=== PATIENT | male | born 1985 | race Two or more races ===

== ENCOUNTER 2019-05-23 20:50 | Emergency (ER) | payer BC ==
[2019-05-23] MEDS ORDERED: ASPIRIN 81 MG TABLET, CHEWABLE PO ONE (21:06)
--- NOTE | 2019-05-23 21:06 | ER Document Report ---
ED Medical Screen (RME) - General Chief Complaint: Chest Pain Stated Complaint: CHEST PAIN,DIFFICULTY BREATHING Time Seen by Provider: 05/23/19 21:04 Primary Care Provider: FERN POPE [Primary Care Provider] - Follow up as needed Notes: HPI: 34-year-old male presenting with chest pressure right chest that radiates into the right back that began this afternoon. Reports increased pressure with deep breathing. No fever no recent illness. No cough. Has had slight nausea since 8 PM but no abdominal pain. No prior history of similar discomfort. Patient states he did run 3-1/2 miles this morning with no difficulty. I have greeted and performed a rapid initial assessment of this patient. A comprehensive ED assessment and evaluation of the patient, analysis of test results and completion of the medical decision making process will be conducted by additional ED providers PHYSICAL EXAMINATION: Alert and oriented x3, moves all extremities equally. Lung sounds are clear to auscultation, regular rate and rhythm. EKG normal sinus rhythm without ectopy. No abdominal pain on palpation. No chest wall pain on palpation - Related Data Allergies/Adverse Reactions: No Known Allergies Allergy (Verified 01/19/12 11:58) Past Medical History - Past Medical History Cardiac Medical History: Denies: Hx Coronary Artery Disease, Hx Hypertension Pulmonary Medical History: Denies: Hx Asthma Endocrine Medical History: Denies: Hx Diabetes Mellitus Type 1, Hx Diabetes Mellitus Type 2 - Immunizations Hx Diphtheria, Pertussis, Tetanus Vaccination: Yes Physical Exam - Vital signs Vitals: Temp Pulse Resp BP Pulse Ox 98.3 F 74 16 179/110 H 93 05/23/19 20:59 05/23/19 20:59 05/23/19 20:59 05/23/19 20:59 05/23/19 20:59 Course - Vital Signs Vital signs: Temp Pulse Resp BP Pulse Ox 98.3 F 74 16 179/110 H 93 05/23/19 20:59 05/23/19 20:59 05/23/19 20:59 05/23/19 20:59 05/23/19 20:59 Doctor's Discharge - Discharge Referrals: FERN POPE [Primary Care Provider] - Follow up as needed
[2019-05-23 21:26] LABS: ABSOLUTE EOSINOPHILS # (AUTO) 0.1 10^3/uL (0.0-0.6); ABSOLUTE LYMPHOCYTES (AUTO) 1.7 10^3/uL (0.5-4.7); ABSOLUTE MONOCYTES (AUTO) 0.4 10^3/uL (0.1-1.4); ABSOLUTE NEUT (AUTO) 3.3 10^3/uL (1.7-8.2); BASOPHILS % (AUTO) 0.4 % (0-2); EOSINOPHILS % (AUTO) 2.1 % (0-6); HEMATOCRIT 39.6 % (37.9-51.0); HEMOGLOBIN 13.9 g/dL (13.5-17.0); LYMPHOCYTES % (AUTO) 30.2 % (13-45); MEAN CORPUSCULAR HEMOGLOBIN 29.4 pg (27.0-33.4); MEAN CORPUSCULAR HGB CONC 35.1 g/dL (32.0-36.0); MEAN CORPUSCULAR VOLUME 84 fl (80-97); MONOCYTES % (AUTO) 7.8 % (3-13); PLATELET COUNT 173 10^3/uL (150-450); RED BLOOD COUNT 4.71 10^6/uL (4.35-5.55); RED CELL DISTRIBUTION WIDTH 12.8 % (11.5-14.0); SEGMENTED NEUTROPHILS % (AUTO) 59.5 % (42-78); TOTAL CELLS COUNTED % (AUTO) 100 %; WHITE BLOOD COUNT 5.5 10^3/uL (4.0-10.5)
[2019-05-23 21:32] LABS: INTERNATIONAL RATION (INR) 1.11; PROTHROMBIN TIME 14.3 SEC (11.4-15.4)
[2019-05-23 21:43] LABS: ALBUMIN 4.4 g/dL (3.5-5.0); ALKALINE PHOSPHATASE 88 U/L (38-126); ANION GAP 13 (5-19); ASPARTATE AMINO TRANSFERASE 27 U/L (17-59); BILIRUBIN,DIRECT 0.3 mg/dL (0.0-0.4); BILIRUBIN,TOTAL 0.4 mg/dL (0.2-1.3); BLOOD UREA NITROGEN 17 mg/dL (7-20); CALCIUM 9.5 mg/dL (8.4-10.2); CARBON DIOXIDE 25 mmol/L (22-30); CHLORIDE 102 mmol/L (98-107); GLUCOSE 169 mg/dL (75-110); POTASSIUM 3.6 mmol/L (3.6-5.0); TOTAL PROTEIN 7.4 g/dL (6.3-8.2)
--- NOTE | 2019-05-23 21:53 | RADIOLOGY REPORT (SQ) ---
EXAM DESCRIPTION: XR CHEST 2 VIEWS COMPLETED DATE/TME: 05/23/2019 21:04 CLINICAL HISTORY: 34 years, Male, chest pain COMPARISON: Prior study from 01/19/2012 NUMBER OF VIEWS: 2 TECHNIQUE: Frontal and lateral radiographs were obtained LIMITATIONS: None. FINDINGS: Cardiac and mediastinal contours are normal in appearance. Lungs are clear. No pleural effusion or pneumothorax. IMPRESSION: No acute disease. copyright 2010 [employer]- All Rights Reserved
--- NOTE | 2019-05-23 23:16 | ER Document Report ---
ED General - General Chief Complaint: Chest Pressure Stated Complaint: CHEST PAIN,DIFFICULTY BREATHING Time Seen by Provider: 05/23/19 21:04 Primary Care Provider: FERN POPE [NO LOCAL MD] - Follow up as needed Mode of Arrival: Ambulatory Information source: Patient Notes: 34-year-old man presents to the emergency department with a complaint of burning discomfort in the chest radiating into his back. He denies a prior history of similar episodes. And has no risk factors, he denies smoking, hypertension, family history of CAD. - Related Data Allergies/Adverse Reactions: No Known Allergies Allergy (Verified 01/19/12 11:58) Home Medications: OXYBUTINE Past Medical History - Social History Smoking Status: Never Smoker Family History: Reviewed & Not Pertinent Patient has suicidal ideation: No Patient has homicidal ideation: No - Past Medical History Cardiac Medical History: Denies: Hx Coronary Artery Disease, Hx Hypertension Pulmonary Medical History: Denies: Hx Asthma Endocrine Medical History: Denies: Hx Diabetes Mellitus Type 1, Hx Diabetes Mellitus Type 2 - Immunizations Hx Diphtheria, Pertussis, Tetanus Vaccination: Yes Review of Systems - Review of Systems Notes: Constitutional: Negative for fever. HENT: Negative for sore throat. Eyes: Negative for visual changes. Cardiovascular: + Chest burning Respiratory: Negative for shortness of breath. Gastrointestinal: Negative for abdominal pain, vomiting or diarrhea. Genitourinary: Negative for dysuria. Musculoskeletal: Negative for back pain. Skin: Negative for rash. Neurological: Negative for headaches, weakness or numbness. 10 point ROS negative except as marked above and in HPI. Physical Exam - Vital signs Vitals: Temp Pulse Resp BP Pulse Ox 98.3 F 74 16 179/110 H 93 05/23/19 20:59 05/23/19 20:59 05/23/19 20:59 05/23/19 20:59 05/23/19 20:59 - Notes Notes: PHYSICAL EXAMINATION: Physical Exam: General: Well-nourished well-developed 34-year-old man in no acute distress HEENT: NC/AT, pupils equal round and reactive to light, MM moist,nares clear, oropharynx clear, airway patent Neck: supple, no adenopathy, no masses. Good range of motion Lungs: clear, no wheezing, no rales no rhonchi CVS: Regular rate and rhythm no murmur gallop or rub Abdomen: Soft, active, nontender, no masses, no hepatosplenomegaly Ext: No edema, clubbing or cyanosis. Neuro: Alert and responsive, moving all 4 extremities on command, cranial nerves intact, no focal findings Skin: Intact no open lesions, no rash PSYCH: Normal mood, normal affect. Course - Re-evaluation Re-evalutation: 05/23/19 23:14 Patient symptoms were resolved by the time of this exam, he states that it was a burning discomfort that radiated through to his back, symptoms lasted for a brief period, his insisted that he come to be checked. The patient notes that he ran 3.5 miles during his lunch break today at work. And had no symptoms at that time. 05/23/19 23:16 HEART Score: HEART score for chest pain patients Score History Slightly suspicious 0 ECG Normal 0 Age = <45 year 0 Risk factors = No risk factors known 0 Troponin =normal limit 0 Total 0 If HEART score is = 3 AND both tronponin measurments are normal, the 30 day risk of a major adverse cardiac event (all-cause mortality, myocardia infarction or need for coronary revscularization) is < 1% (Sensitivity 100%, NPV 100%). Chest pain in a patient without evidence of cardiac or other serious etiology on workup today. I discussed with patient that, based on their age, risk factors and emergency department testing today, the likelihood that their symptoms are related to a heart attack is very low (estimated risk of heart attack or over the next 30 days of less than 1%). The patient demonstrates decision making capacity and has verbalized an understanding of these risks to me. Based on this, the patient has chosen to follow-up as an outpatient. Usual chest pain return precautions reviewed. The patient states understanding and agreement with this plan. - Vital Signs Vital signs: Temp Pulse Resp BP Pulse Ox 97.4 F 74 19 152/93 H 97 05/23/19 23:30 05/23/19 20:59 05/23/19 23:01 05/23/19 23:01 05/23/19 23:01 - Laboratory Result Diagrams: 05/23/19 21:14 05/23/19 21:14 Laboratory results interpreted by me: 05/23/19 21:14 Glucose 169 H 05/24/19 00:12 I have reviewed laboratory data and used this information for the treatment decisions regarding the patient. - Diagnostic Test Radiology reviewed: Image reviewed, Reports reviewed - EKG Interpretation by Me EKG shows normal: Sinus rhythm Rate: Normal Rhythm: NSR - Rate 80 Discharge - Discharge Clinical Impression: Non-cardiac chest pain, Elevated blood pressure reading Condition: Good Disposition: HOME, SELF-CARE Instructions: Chest Pain of Unclear Cause ([facility]) Additional Instructions: You were diagnosed with a noncardiac episode of chest discomfort, symptoms may be result of esophageal spasm or muscle spasm, given the complaint of burning GI related etiology is likely. You may use [id number] antiacid and Tylenol for the pain. If your symptoms are continuing or worsening you may return to the emergency department for further evaluation and treatment. Referrals: LOCALMD,NO [NO LOCAL MD] - Follow up as needed
[2019-05-23 23:29] VITALS: BP 152/93
--- NOTE | 2019-05-24 13:55 | EKG REPORT ---
SEVERITY:- NORMAL ECG - SINUS RHYTHM : Confirmed by: Tracee Matson MD 24-May-2019 13:54:29
== END 2019-05-23 23:33 | disposition home or self-care (01) ==
LOC: ER 20:50
DX: R07.89 Other chest pain (principal); R06.00 Dyspnea, unspecified; R03.0 Elevated blood-pressure reading, without diagnosis of hypertension
CPT/HCPCS: 36415; 71046; 80053; 84484; 85025; 85610; 93005; 93010; 99285

== ENCOUNTER 2019-05-25 05:51 | Emergency (ER) | payer BC ==
[2019-05-25] MEDS ORDERED: PANTOPRAZOLE SODIUM 40 MG TABLET.DR PO ONE (07:02)
--- NOTE | 2019-05-25 07:26 | RADIOLOGY REPORT (SQ) ---
Ultrasound of the right upper quadrant of the abdomen: 05/25/2019 6:24 AM CDT Technique: Multiple grayscale color Doppler images of the right upper quadrant of the abdomen were obtained. Comparison: None available History: 34-year old patient with epigastric pain. Findings: The visualized portions of the hepatic parenchyma appears diffusely echogenic. There is no evidence to suggest intra or extrahepatic ductal dilatation. There is normal directional flow seen within the main portal vein. There is no evidence of pericholecystic fluid, gallbladder wall thickening, or cholelithiasis. The common duct measures 2-3 mm. The right kidney measures up to 11.3 cm in length. The right kidney demonstrates normal cortical echogenicity with no evidence to suggest hydronephrosis. The visualized portions of the IVC, abdominal aorta, and pancreatic head appear normal. No free intraperitoneal fluid is seen. Impression: 1. No cholelithiasis is seen. The common duct is within normal limits of size. 2. Hepatic steatosis
[2019-05-25 07:52] VITALS: BP 138/86
--- NOTE | 2019-05-26 16:49 | ER Document Report ---
Entered by AMPARO CASAS SCRIBE 05/25/19 0628 Acting as scribe for:KEVAN BILL MD ED General - General Chief Complaint: Abdominal Pain Stated Complaint: ABDOMINAL PAIN Time Seen by Provider: 05/25/19 06:05 Primary Care Provider: JOHNATHON MARINO MD [Primary Care Provider] - Follow up as needed Information source: Patient Notes: This 34 year old male patient presents to the emergency department today with complaints of a "burning sensation" in his upper abdomen. Patient states he was in the emergency department x2 days ago for the same problem. Patient states this usually occurs after he eats, is exacerbated by laying supine, and most recently occurred this morning at 4:30 am. Patient states he took Tums as instructed from his last visit. Patient states he also took Tylenol yesterday and this morning because he felt like he had chills. Patient states he has a decreased appetite and feels nauseous after eating. Patient denies vomiting, problems with swallowing, or problems with bowel movement. - Related Data Allergies/Adverse Reactions: No Known Allergies Allergy (Verified 01/19/12 11:58) Past Medical History - General Information source: Patient - Social History Smoking Status: Never Smoker Cigarette use (# per day): No Chew tobacco use (# tins/day): No Frequency of alcohol use: None Drug Abuse: None Family History: Reviewed & Not Pertinent, Hypertension Patient has suicidal ideation: No Patient has homicidal ideation: No - Immunizations Hx Diphtheria, Pertussis, Tetanus Vaccination: Yes Review of Systems - Review of Systems Constitutional: See HPI, Chills EENT: See HPI. denies: Difficulty swallowing Cardiovascular: No symptoms reported Respiratory: No symptoms reported Gastrointestinal: See HPI, Abdominal pain, Nausea. denies: Vomiting Genitourinary: No symptoms reported Male Genitourinary: No symptoms reported Musculoskeletal: No symptoms reported Skin: No symptoms reported Hematologic/Lymphatic: No symptoms reported Neurological/Psychological: No symptoms reported -: Yes All other systems reviewed and negative Physical Exam - Vital signs Vitals: Temp Pulse Resp BP Pulse Ox 97.5 F 78 17 156/95 H 97 05/25/19 05:56 05/25/19 05:56 05/25/19 05:56 05/25/19 05:56 05/25/19 05:56 - General General appearance: Appears well, Alert - HEENT Head: Normocephalic, Atraumatic Eyes: Normal Pupils: PERRL Pharynx: Normal - Respiratory Respiratory status: No respiratory distress Chest status: Nontender Breath sounds: Normal Chest palpation: Normal - Cardiovascular Rhythm: Regular Heart sounds: Normal auscultation Murmur: No - Abdominal Inspection: Normal Distension: No distension Bowel sounds: Normal Tenderness: Nontender Organomegaly: No organomegaly - Extremities General upper extremity: Normal inspection. No: Edema General lower extremity: Normal inspection. No: Edema - Neurological Neuro grossly intact: Yes Cognition: Normal Orientation: AAOx4 - Psychological Associated symptoms: Normal affect, Normal mood - Skin Skin Temperature: Warm Skin Moisture: Dry Skin Color: Normal Course - Re-evaluation Re-evalutation: 05/25/19 07:33 Patient resting comfortably. Awaken patient and reported to him preliminary findings of his ultrasound right upper quadrant disclosed no acute gallbladder disease or biliary tract disease. Official reading still pending at this time. Explained the patient that the plan of care will be to put him on a medication for acid reflux and nausea. - Vital Signs Vital signs: Temp Pulse Resp BP Pulse Ox 97.8 F 65 16 138/86 H 99 05/25/19 07:51 05/25/19 07:51 05/25/19 07:51 05/25/19 07:51 05/25/19 07:51 - Laboratory Laboratory results interpreted by me: Reviewed laboratories EKG chest x-ray that was done on patient 2 days ago while in the emergency department with this complaint of chest pain. Patient's labs EKG chest x-ray all were within normal limits. Due to recent labs there was no repeat laboratories done today. - Diagnostic Test Radiology reviewed: Image reviewed, Reports reviewed Radiology results interpreted by me: 05/25/19 07:39 Ultrasound of abdomen right upper quadrant preliminary notes by sleep technician shows no acute process. Official read still pending from radiologist. Discharge - Discharge Clinical Impression: GERD (gastroesophageal reflux disease) Condition: Stable Disposition: HOME, SELF-CARE Additional Instructions: Reflux Disease (GERD) Gastro-Esophageal Reflux Disease (GERD) is caused by stomach acid refluxing back up into the esophagus. The valve at the end of the esophagus may be weak. This is common in persons with a hiatal hernia. GERD symptoms can include indigestion, chest pain, heartburn, or food "sticking." Certain foods, alcohol, and aspirin can make GERD worse. Treatment depends on the severity. Usually, antacids or acid-suppressing medicines are used. When the esophagus is acutely inflamed, the physician will often prescribe membrane-protective drugs such as Carafate. Some patients benefit from medication such as Reglan that tightens the valve at the top of the stomach. Avoid those foods that bring on your symptoms. For many people, these foods are coffee, chocolate, onions, garlic, and carbonated drinks. Don't use alcohol, aspirin, caffeine, or tobacco. Don't eat late at night -- within 4 hours of bedtime. Don't over-eat. If necessary, elevate the head of your bed about 4 inches so that stomach acid will not roll up into your esophagus. Call the doctor if you develop severe chest pain, inability to swallow fluids, fever, or worsening symptoms. Prescriptions: Ondansetron [Zofran Odt 4 mg Tablet] 1 - 2 tab PO Q4HP PRN #10 tab.rapdis PRN Reason: Omeprazole 40 mg PO DAILY #30 capsule.dr Referrals: JOHNATHON MARINO MD [Primary Care Provider] - Follow up as needed I personally performed the services described in the documentation, reviewed and edited the documentation which was dictated to the scribe in my presence, and it accurately records my words and actions.
== END 2019-05-25 07:52 | disposition home or self-care (01) ==
LOC: ER 05:51
DX: K21.9 Gastro-esophageal reflux disease without esophagitis (principal); R68.83 Chills (without fever); R11.0 Nausea
CPT/HCPCS: 99284; 76705; J3490

== ENCOUNTER 2019-05-26 20:29 | Emergency (ER) | payer BC ==
--- NOTE | 2019-05-26 21:32 | ER Document Report ---
ED General - General Chief Complaint: Epigastric Pain Stated Complaint: POSSIBLE VIRUS EXPOSURE Time Seen by Provider: 05/26/19 21:13 Primary Care Provider: TEJ GRACIA FNP [Primary Care Provider] - Follow up as needed Mode of Arrival: Ambulatory Information source: Patient TRAVEL OUTSIDE OF THE [place] IN LAST 30 DAYS: No - HPI Onset: Other - Since last Sunday Onset/Duration: Gradual Quality of pain: Burning Severity: Moderate Pain Level: 3 Associated symptoms: Other - epigastric abdominal pain after eating Exacerbated by: Denies Relieved by: Denies Similar symptoms previously: No Recently seen / treated by doctor: Yes - patient has been seen in this ER 2 times recently for the same issues Notes: 34 year old male with no known PMH here for epigastric abdominal pain which comes on after eating and after urinating. The patient has had the burning pain since last Sunday. The patient also gets chills with the pains. The patient denies fevers, nausea, vomiting, diarhrea, known sick contacts, sweats. The patient has only had a bland diet since then but basically any food he seems to eat seem to make the pain worse. The patient has had blood work in this ER including a CBC and CMP which have been unremarkable. The patient has also had an abdominal ultrasound which has been unremarkable. - Related Data Allergies/Adverse Reactions: No Known Allergies Allergy (Verified 01/19/12 11:58) Home Medications: omeprezole. Tylenol Past Medical History - General Information source: Patient - Social History Smoking Status: Never Smoker Frequency of alcohol use: None Drug Abuse: None Family History: Reviewed & Not Pertinent, Hypertension Patient has suicidal ideation: No Patient has homicidal ideation: No - Past Medical History Cardiac Medical History: Denies: Hx Coronary Artery Disease, Hx Hypertension Pulmonary Medical History: Denies: Hx Asthma Endocrine Medical History: Denies: Hx Diabetes Mellitus Type 1, Hx Diabetes Mellitus Type 2 - Immunizations Hx Diphtheria, Pertussis, Tetanus Vaccination: Yes Review of Systems - Review of Systems Constitutional: No symptoms reported EENT: No symptoms reported Cardiovascular: No symptoms reported Respiratory: No symptoms reported Gastrointestinal: Abdominal pain - in epigastric area Genitourinary: No symptoms reported Male Genitourinary: No symptoms reported Musculoskeletal: No symptoms reported Skin: No symptoms reported Hematologic/Lymphatic: No symptoms reported Neurological/Psychological: No symptoms reported -: Yes All other systems reviewed and negative Physical Exam - Vital signs Vitals: Pulse Ox 99 05/26/19 20:41 - Notes Notes: GENERAL: Well-appearing, well-nourished and in no acute distress. HEAD: Atraumatic, normocephalic. EYES: Pupils equal round and reactive to light, extraocular movements intact, sclera anicteric, conjunctiva are normal. ENT: TMs normal, nares patent, oropharynx clear without exudates. Moist mucous membranes. NECK: Normal range of motion, supple without lymphadenopathy or JVD. LUNGS: Breath sounds clear to auscultation bilaterally and equal. No wheezes rales or rhonchi. HEART: Regular rate and rhythm without murmurs, rubs or gallops. ABDOMEN: Soft, mild tenderness in epigastric area. Normoactive bowel sounds. No guarding, no rebound. No masses appreciated. EXTREMITIES: Normal range of motion, no pitting or edema. No clubbing or cyanosis. NEUROLOGICAL: Cranial nerves II through XII grossly intact. Normal speech, normal gait. PSYCH: Normal mood, normal affect. SKIN: Warm, Dry, normal turgor, no rashes or lesions noted. Course - Re-evaluation Re-evalutation: 05/26/19 23:41 This its the patient's 3rd visit for epigastric pain. The patient has had normal labs including a CBC and CMP on his last visit. The patient had a normal Lipase today in the ER. Patient's UA is not concerning for an acute process (patient said he has some pain with urinating at times. The patient epigastric pain only comes on after eat. An Ulcer seems possible and likely. Patient is already taking a PPI. Will add carafate and refer to a GI Doctor. Patient had an abdominal US on his last ER visit which showed no acute process. Patient was given a GI Cocktail and carafate in the ER today with improvement of his symptoms. - Vital Signs Vital signs: Temp Pulse Resp BP Pulse Ox 98.2 F 18 143/98 H 98 05/26/19 20:42 05/26/19 20:42 05/26/19 21:01 05/26/19 22:00 - Laboratory Laboratory results interpreted by me: 05/26/19 22:00 Urine Ketones TRACE H Urine Blood SMALL H Urine Urobilinogen 2.0 H Discharge - Discharge Clinical Impression: Epigastric pain Condition: Stable Disposition: HOME, SELF-CARE Instructions: Abdominal Pain ([facility]), Evaluation of Upper Abdominal Pain ([facility]), Ulcer ([facility]) Additional Instructions: Continue taking the previously prescribed Omeprazole. Start taking Carafate as prescribed. Follow up with a GI Doctor as soon as possible as you may have an ulcer. Prescriptions: Sucralfate [Carafate 1 gm Tablet] 1 gm PO BID #28 tablet Referrals: TEJ GRACIA FNP [Primary Care Provider] - Follow up as needed OLAYINKA HIGHTOWER MD [ACTIVE STAFF] - Follow up as needed GREGG GUTIERREZ MD [ACTIVE STAFF] - Follow up as needed
[2019-05-26] MEDS ORDERED: SUCRALFATE 1 GM TABLET PO ONE (21:33)
[2019-05-26 22:33] VITALS: BP 143/98
[2019-05-26 22:44] LABS: APPEARANCE,URINE CLEAR; BILIRUBIN,URINE NEGATIVE (NEGATIVE); COLOR,URINE YELLOW; GLUCOSE, URINE NEGATIVE (NEGATIVE); KETONES,URINE TRACE mg/dL (NEGATIVE); LEUKOCYTE ESTERASE,URINE NEGATIVE (NEGATIVE); NITRITE,URINE NEGATIVE (NEGATIVE); PROTEIN,URINE NEGATIVE (NEGATIVE); URINE SPECIFIC GRAVITY 1.033
[2019-05-26] MEDS ORDERED: MAG HYDROX/AL HYDROX/SIMETH SUSP 30 ML UDCUP PO ONE (23:09)
[2019-05-26] MEDS ORDERED: LIDOCAINE 2% VISCOUS SOLN 15 ML UDCUP PO ONE (23:09)
[2019-05-26] MEDS ORDERED: METOCLOPRAMIDE HCL ORAL SOLN 10 MG/10 ML UDCUP PO ONE (23:09)
== END 2019-05-27 00:05 | disposition home or self-care (01) ==
LOC: ER 20:29
DX: R10.13 Epigastric pain (principal); R30.0 Dysuria
CPT/HCPCS: 99284; 36415; 83690; 81001; J3490

== ENCOUNTER 2019-05-27 04:56 | Emergency (ER) | payer BC ==
[2019-05-27 06:13] LABS: ABSOLUTE EOSINOPHILS # (AUTO) 0.1 10^3/uL (0.0-0.6); ABSOLUTE LYMPHOCYTES (AUTO) 1.5 10^3/uL (0.5-4.7); ABSOLUTE MONOCYTES (AUTO) 0.5 10^3/uL (0.1-1.4); ABSOLUTE NEUT (AUTO) 4.4 10^3/uL (1.7-8.2); BASOPHILS % (AUTO) 0.3 % (0-2); EOSINOPHILS % (AUTO) 1.4 % (0-6); HEMATOCRIT 44.5 % (37.9-51.0); HEMOGLOBIN 15.1 g/dL (13.5-17.0); LYMPHOCYTES % (AUTO) 22.7 % (13-45); MEAN CORPUSCULAR HEMOGLOBIN 28.4 pg (27.0-33.4); MEAN CORPUSCULAR HGB CONC 33.9 g/dL (32.0-36.0); MEAN CORPUSCULAR VOLUME 84 fl (80-97); MONOCYTES % (AUTO) 8.3 % (3-13); PLATELET COUNT 194 10^3/uL (150-450); RED BLOOD COUNT 5.32 10^6/uL (4.35-5.55); RED CELL DISTRIBUTION WIDTH 13.2 % (11.5-14.0); SEGMENTED NEUTROPHILS % (AUTO) 67.3 % (42-78); TOTAL CELLS COUNTED % (AUTO) 100 %; WHITE BLOOD COUNT 6.5 10^3/uL (4.0-10.5)
[2019-05-27 06:34] LABS: ALBUMIN 4.8 g/dL (3.5-5.0); ALKALINE PHOSPHATASE 96 U/L (38-126); ANION GAP 11 (5-19); ASPARTATE AMINO TRANSFERASE 28 U/L (17-59); BILIRUBIN,TOTAL 0.9 mg/dL (0.2-1.3); BLOOD UREA NITROGEN 16 mg/dL (7-20); CALCIUM 9.8 mg/dL (8.4-10.2); CARBON DIOXIDE 29 mmol/L (22-30); CHLORIDE 102 mmol/L (98-107); GLUCOSE 103 mg/dL (75-110); POTASSIUM 4.2 mmol/L (3.6-5.0); TOTAL PROTEIN 7.8 g/dL (6.3-8.2)
--- NOTE | 2019-05-27 08:16 | ER Document Report ---
ED General - General Chief Complaint: Abdominal Pain Stated Complaint: ABDOMINAL PAIN Time Seen by Provider: 05/27/19 07:42 Primary Care Provider: TEJ GRACIA FNP [Primary Care Provider] - Follow up as needed TRAVEL OUTSIDE OF THE [place] IN LAST 30 DAYS: No - HPI Notes: Previously healthy 34-year-old male now making his fourth ED visit within the last 10 days for abdominal discomfort, mild nausea and intermittent chills without documented fever. Patient says he is eating and drinking normally. He denies any respiratory symptoms. No known exposure to ill individuals. Patient is an [employer] currently working from home. No recent travel. No prior surgery. No regular medications. Does not use tobacco or alcohol. Patient's had multiple normal labs documented on these visits. Also had a negative gallbladder ultrasound. He complains of intermittent epigastric discomfort which is persistent. He has been told that he likely has gastritis versus peptic ulcer and needs endoscopy. He has an appointment later this week with GI for endoscopy. He is currently on omeprazole and Carafate. - Related Data Allergies/Adverse Reactions: No Known Allergies Allergy (Verified 01/19/12 11:58) Home Medications: ONDANSETRON, ONEPRAZOLE, CARAFATE Past Medical History - General Information source: Patient, Relative, [facility] Records - Social History Smoking Status: Never Smoker Chew tobacco use (# tins/day): No Frequency of alcohol use: None Drug Abuse: None Family History: Reviewed & Not Pertinent, Hypertension Patient has suicidal ideation: No Patient has homicidal ideation: No - Past Medical History Cardiac Medical History: Denies: Hx Coronary Artery Disease, Hx Hypertension Pulmonary Medical History: Denies: Hx Asthma Endocrine Medical History: Denies: Hx Diabetes Mellitus Type 1, Hx Diabetes Mellitus Type 2 GI Medical History: Reports: Hx Ulcer - Immunizations Hx Diphtheria, Pertussis, Tetanus Vaccination: Yes Review of Systems - Review of Systems Notes: Constitutional: Negative for fever. HENT: Negative for sore throat. Eyes: Negative for visual changes. Cardiovascular: Negative for chest pain. Respiratory: Negative for shortness of breath. Gastrointestinal: As per HPI. Genitourinary: Negative for dysuria. Musculoskeletal: Negative for back pain. Skin: Negative for rash. Neurological: Negative for headaches, weakness or numbness. 10 point ROS negative except as marked above and in HPI. Physical Exam - Vital signs Vitals: Temp Pulse Resp BP Pulse Ox 99.1 F 75 20 153/97 H 96 05/27/19 05:11 05/27/19 05:11 05/27/19 05:11 05/27/19 05:11 05/27/19 05:11 - Notes Notes: GENERAL: Well-developed well-nourished appearing in no acute distress. Temperature measured at triage 99.1. O2 saturation 100% on room air. SKIN: Good turgor no rashes. HEAD: Normocephalic atraumatic. EYES: PERRLA. EOMI. Conjunctivae and sclerae clear. EARS: CANALS AND TMS CLEAR. NOSE: CLEAR. MOUTH: Moist mucosa. Good dentition. No stridor or edema. No drooling. NECK: Supple. No masses or thyromegaly. No adenopathy. Carotids 2+ without bruits. No JVD. BACK: Symmetrical without tenderness. CHEST: Respirations unlabored. Breath sounds clear and symmetrical. HEART: Regular rhythm. No murmur gallop or rub. ABDOMEN: Minimal epigastric tenderness. Soft without masses, organomegaly or rebound. Bowel sounds normally active. No bruits. GENITALIA: Deferred. EXTREMITIES: No edema. No calf tenderness. Cap refill less than 1.5 seconds. Dorsalis pedis and posterior tibial pulses 3+ and symmetrical. NEUROLOGICAL: GCS 15. Alert and oriented x3. Normal gait. Fluent speech. Cranial nerves II through XII intact. Sensorimotor and cerebellar normal. Nor mal tone. PSYCHIATRIC: Appropriate affect. Course - Re-evaluation Re-evalutation: 05/27/19 08:20 Findings are basically unchanged from earlier evaluation. His AST today is trivially elevated at 52. Everything else looks normal on his lab evaluation. I basically reassured patient and his and explained to them that if somet soledad new develops we will be happy to reevaluate here. Otherwise he should continue current medications and follow-up with GI. I am also going to offer him some tramadol for his discomfort. We talked specifically about Kovic 19 which seems to be a special concern for him. I explained to him that based on current findings even if he had a positive test we would not recommend anything other than supportive care. I also advised him there would be a delay of 3 to 5 days to get results of any testing we did today. Based on this he declines further evaluation for this condition currently. - Vital Signs Vital signs: Temp Pulse Resp BP Pulse Ox 99.1 F 75 20 153/97 H 96 05/27/19 05:11 05/27/19 05:11 05/27/19 05:11 05/27/19 05:11 05/27/19 05:11 - Laboratory Result Diagrams: 05/27/19 05:39 05/27/19 05:39 Laboratory results interpreted by me: 05/27/19 05:39 ALT 52 H Discharge - Discharge Clinical Impression: Epigastric pain Condition: Stable Disposition: HOME, SELF-CARE Instructions: Abdominal Pain ([facility]) Additional Instructions: Follow-up with gastroenterology for endoscopy as previously advised. Continue current medications. Return here as needed for new or worsening symptoms: Pain that is worsening or unimproved Uncontrolled vomiting High fever Overall worsening Prescriptions: Tramadol HCl [Ultram 50 mg Tablet] 50 mg PO Q4HP PRN #12 tab PRN Reason: Referrals: TEJ GRACIA FNP [Primary Care Provider] - Follow up as needed
[2019-05-27 09:09] VITALS: BP 143/90
== END 2019-05-27 09:07 | disposition home or self-care (01) ==
LOC: ER 04:56
DX: R10.13 Epigastric pain (principal); R11.0 Nausea; R68.83 Chills (without fever); Z79.899 Other long term (current) drug therapy
CPT/HCPCS: 36415; 80053; 85025; 99284